=== PATIENT | male | born 1960 | race Caucasian/White ===

== ENCOUNTER 2016-10-14 11:42 | Outpatient (CLI) | payer OTHER ==
--- NOTE | 2016-10-14 13:34 | DIAGNOSTIC IMAGING REPORT ---
PROCEDURE: US BILATERAL CAROTID DOPPLER INDICATION: NEAR SYNCOPE TECHNIQUE: Color Doppler duplex imaging of the carotid and vertebral vessels. COMPARISON: None. FINDINGS: Right carotid system: No significant stenosis visualized. The waveforms are normal. Left carotid system: No significant stenosis visualized. The waveforms are normal. Vertebral System: Antegrade vertebral artery flow bilaterally. Right common carotid artery peak systolic velocity 110 and cm/second. Right internal carotid artery peak systolic velocity 41 cm/second. Right external carotid artery peak systolic velocity 75 cm/second. Right digeebgy-ik-gmciay carotid artery ratio 0.4 Right vertebral artery peak systolic velocity 39 cm/second. Left common carotid artery peak systolic velocity 88 cm/second. Left internal carotid artery peak systolic velocity 69 cm/second. Left external carotid artery peak systolic velocity 92 cm/second. Left uernpuza-xk-jzmnmj carotid artery ratio 0.8 Left vertebral artery peak systolic velocity 48 cm/second. IMPRESSION: 1. No hemodynamically significant stenosis in either carotid system. 2. Antegrade vertebral artery flow bilaterally. Velocity criteria are extrapolated from diameter data as defined by the Society of Radiologists in Ultrasound Consensus Conference, Radiology 2003; 229; 340-346.
--- NOTE | 2016-10-14 13:34 | DIAGNOSTIC IMAGING REPORT ---
PROCEDURE: US BILATERAL CAROTID DOPPLER INDICATION: NEAR SYNCOPE TECHNIQUE: Color Doppler duplex imaging of the carotid and vertebral vessels. COMPARISON: None. FINDINGS: Right carotid system: No significant stenosis visualized. The waveforms are normal. Left carotid system: No significant stenosis visualized. The waveforms are normal. Vertebral System: Antegrade vertebral artery flow bilaterally. Right common carotid artery peak systolic velocity 110 and cm/second. Right internal carotid artery peak systolic velocity 41 cm/second. Right external carotid artery peak systolic velocity 75 cm/second. Right jfqzhdwh-js-bzslqj carotid artery ratio 0.4 Right vertebral artery peak systolic velocity 39 cm/second. Left common carotid artery peak systolic velocity 88 cm/second. Left internal carotid artery peak systolic velocity 69 cm/second. Left external carotid artery peak systolic velocity 92 cm/second. Left zbwgikxv-ch-ypjqdn carotid artery ratio 0.8 Left vertebral artery peak systolic velocity 48 cm/second. IMPRESSION: 1. No hemodynamically significant stenosis in either carotid system. 2. Antegrade vertebral artery flow bilaterally. Velocity criteria are extrapolated from diameter data as defined by the Society of Radiologists in Ultrasound Consensus Conference, Radiology 2003; 229; 340-346.
--- NOTE | 2016-10-14 13:48 | DIAGNOSTIC IMAGING REPORT ---
PROCEDURE: MR BRAIN WITHOUT CONTRAST INDICATION: NEAR SYNCOPE TECHNIQUE: Sagittal T1 FLAIR; coronal T2; axial T1 FLAIR, T2-weighted FLAIR, T2 FSE, gradient echo T2, DWI and ADC sequences. COMPARISON: Brain MRI 10/11/2012 FINDINGS: Sulci ventricular system normal. No change in the 1 cm old lacunar infarct of the head of the right caudate nucleus and right basal ganglia anteriorly. Minor white matter chronic ischemic changes There is no acute CVA or hemorrhage. Normal vascular flow voids. Normal orbits. Sinuses and mastoids are clear IMPRESSION: 1. No acute CVA or significant change from 10/11/2012 2. Old lacunar infarct of the head of the right caudate nucleus and right basal ganglia anteriorly 3. Minor white matter chronic ischemic changes
== END 2016-10-14 23:00 ==
LOC: US SRH 11:42
DX: R55 Syncope and collapse (principal); Z86.73 Personal history of transient ischemic attack (TIA), and cerebral infarction without residual deficits